=== PATIENT | male | born 1995 | race Caucasian/White ===

== ENCOUNTER 2021-12-22 10:02 | Outpatient (CLI) | payer OTHER, SELFPAY ==
[2021-12-22 12:22] LABS: Absolute Lymphocyte Count 1.94 X10^3/uL (0.83-4.51); Absolute Neutrophil Count 2.8 X10^3/uL (2.0-7.7); Basophil# 0.04 X10^3/uL; Basophil% 0.7 % (0-1); Eosinophil# 0.12 X10^3/uL; Eosinophils% 2.1 % (0-5); Hematocrit 48.8 % (40-54); Hemoglobin 16.8 g/dL (13.0-16.5); Lymphocyte # 1.94 X10^3/ul (0.83-4.51); Lymphocyte % 34.6 % (19-41); Mean Corp Hgb Conc 34.4 g/dL (32-36); Mean Corpuscular Volume 87.1 fL (80-94); Mean Platelet Vol. 10.4 fl (6.2-12.0); Monocyte# 0.73 X10^3/uL; NRBC Flagged by Analyzer 0 % (0-5); Neutrophil # 2.77 X10^3/uL (2.7-7.7); Neutrophil % 49.4 % (47-70); Platelet Count 294 K/mm3 (150-450); RBC Distribution Width SD 38.6 fl (35.1-43.9); White Blood Count 5.6 K/mm3 (4.4-11.0)
[2021-12-22 12:46] LABS: Vitamin D,25 Hydroxy 17.8 ng/mL
[2021-12-22 13:05] LABS: ALB/GLOB Ratio 0.9 RATIO (0.9-2.4); AST(SGOT) 44 U/L (15-37); Alanine Aminotransfer ALT/SGPT 145 U/L (16-61); Albumin, Serum 3.6 g/dL (3.2-5.0); Alkaline Phosphatase 91 U/L (45-117); Anion Gap 5 (5-15); BUN 16 mg/dL (7-18); BUN/Creat Ratio 18.6 RATIO (10-20); Calcium,Total 8.9 mg/dL (8.5-10.1); Chloride 107 mmol/L (98-107); Cholesterol 261 mg/dL (200); Creatinine, Serum 0.86 mg/dL (0.70-1.30); EST Glomerular Filtration Rate 114 mL/min (>60); Est Glom Filt Rate - Afr Amer 137 mL/min (>60); Free T3 3.2 pg/mL (2.18-3.98); Globulin 3.8 g/dL (2.2-4.2); Glucose 136 mg/dL (74-106); High Density Lipoprotein 45 mg/dL; Protein, Total 7.4 g/dL (6.4-8.2); Sodium Level 140 mmol/L (136-145); T4 Free Direct 0.98 ng/dL (0.76-1.46); Thyroid Stim Hormone (TSH) 2.11 uIU/mL (0.358-3.74); Triglycerides 294 mg/dL; Very Low Density Lipoprotein 59 mg/dL (5-40)
[2021-12-22 13:25] LABS: Hemoglobin A1c 6.1 % (3.8-5.6)
== END 2021-12-22 23:59 | disposition home or self-care (01) ==
LOC: BIMLAB 10:03
PROVIDERS: PCP Internal Medicine; Referring Provider Internal Medicine; Visit Provider Internal Medicine
DX: E11.9 Type 2 diabetes mellitus without complications (principal); E66.3 Overweight; R80.9 Proteinuria, unspecified; E55.9 Vitamin D deficiency, unspecified
CPT/HCPCS: 36415; 80053; 80061; 82306; 83036; 84439; 84443; 84481; 85025

== ENCOUNTER 2021-12-30 11:17 | Outpatient (CLI) | payer OTHER, SELFPAY ==
[2021-12-30 12:56] LABS: 24HR. UA Prot. Total Volume 1000 mL
[2021-12-30 12:59] LABS: Urine Protein (24 Hour) 345.9 mg/dL (<11.9)
[2021-12-30 13:05] LABS: Creat.Clear Total Volume 1000 mL; Creatinine Clearance 195 ml/min (100-200); Creatinine Serum Creat 0.9 mg/dL (0.8-1.3); EST Glomerular Filtration Rate 110 mL/min (>60); Est Glom Filt Rate - Afr Amer 133 mL/min (>60)
[2021-12-30 13:05] LABS: Creatinine, Serum 0.88 mg/dL (0.70-1.30); EST Glomerular Filtration Rate 110 mL/min (>60); Est Glom Filt Rate - Afr Amer 133 mL/min (>60)
== END 2021-12-30 23:59 | disposition home or self-care (01) ==
LOC: BIMLAB 11:18
PROVIDERS: PCP Internal Medicine; Referring Provider Internal Medicine; Visit Provider Internal Medicine
DX: E11.9 Type 2 diabetes mellitus without complications (principal)
CPT/HCPCS: 36415; 81050; 82565; 82575; 84156

== ENCOUNTER 2022-02-18 07:44 | Outpatient (CLI) | payer OTHER, SELFPAY ==
--- NOTE | 2022-02-18 07:48 | US_ITS ---
STUDY: ABDOMINAL ULTRASOUND - RIGHT UPPER QUADRANT REASON FOR VISIT: Male, 26 years old NAFLD TECHNIQUE: Ultrasound evaluation of the right upper quadrant was performed with real-time and static roper-scale imaging. TECHNICAL QUALITY: Adequate. COMPARISON: None. FINDINGS: Liver: The liver is enlarged and measures 19.8 cm. There is increased echogenicity consistent with fatty infiltration. The bile ducts are within normal limits. There is hepatic color flow. The direction of portal flow is hepatopetal. There is no demonstrated mass lesion. Gallbladder: Normal distended gallbladder. The gallbladder wall measures 2.6 mm. There is a negative sonographic Shipley''s sign. There is no pericholecystic fluid. There are no gallstones. Common Bile Duct (C.B.D.): The common bile duct measures 3.7 mm. Pancreas: Normal size of the head, body and tail of the pancreas. There is increased echogenicity of the pancreas. There is no demonstrated pancreatic mass or cyst. Right Kidney: Normal size of the right kidney. The right kidney measures 12.4 cm x 5.6 cm x 7.3 cm. Normal renal cortex. The right cortex measures 2.7 cm. There is no demonstrated renal mass or cyst. There is no right hydronephrosis. US/Liver IMPRESSION: Hepatomegaly and diffuse fatty infiltration of the liver. Electronically Signed: Peter Jordan MD at 15:26 EDT ,
== END 2022-02-18 23:59 | disposition home or self-care (01) ==
PROVIDERS: PCP Internal Medicine; Referring Provider Internal Medicine; Visit Provider Internal Medicine
DX: E11.9 Type 2 diabetes mellitus without complications (principal)
CPT/HCPCS: 76705

== ENCOUNTER 2023-12-01 16:10 | Emergency (ER) | payer SELFPAY ==
[2023-12-01 16:10] VITALS: BP 154/143; PULSE 108; RESP 18; TEMP 36.3; O2SAT 99; BMI 28.3
[2023-12-01 16:38] LABS: Bedside Glucose 348 mg/dL (74-106)
--- NOTE | 2023-12-01 16:44 | EX.ED.DYSGE1 ---
HPI History of Present Illness Chief Complaint: Hyperglycemia Narrative Narrative: 28-year-old male with history of diabetes type 2 presenting with high blood sugars. Patient states that he was diagnosed with type 2 diabetes a couple years ago by Dr. Anaya. He was told to stay away from sugar-free drinks with fake sugar in them, high carb foods. Apparently Dr. Anaya went over all of the diet that he should modify as well as increasing exercise. Also has a history of high blood pressure and is on lisinopril 10 mg p.o. daily. Over the last 2 years he has only sporadically been taking his metformin when he notices that his sugars a little high and he takes his lisinopril only if he sees his blood pressures at high he does not take them on a regular basis. He has not followed up with a primary care physician. Apparently Dr. Anaya left the area and because the patient does not have insurance he is a self-pay and does not want to spend a lot of money. Patient denies polyuria polydipsia. He does drink a lot of sugar-free drinks with fake sugar in them . Patient also still chews Bob which is similar to chewing tobacco and has nicotine in it. Patient states that he has an active job but does not physically do a lot of exercise other than working. This may be he states that he has metformin leftover because only sporadically took his and his dad who recently had a boatload of metformin leftover . [facility] Medical History Diabetes type 2, uncontrolled Home Medications lisinopril 10 mg tablet 10 mg PO DAILY #90 tabs 12/22/21 [Rx Last Taken Unknown] metformin 500 mg tablet 500 mg PO DAILY #90 tabs 02/21/22 [Rx Last Taken Unknown] lisinopril 10 mg tablet 10 mg PO DAILY #60 tabs 12/01/23 [Rx Last Taken Unknown] metformin 500 mg tablet 500 mg PO BID #120 tabs 12/01/23 [Rx Last Taken Unknown] Allergy/AdvReac Type Severity Reaction Status Date / Time No Known Allergies Allergy Verified 12/01/23 16:10 Family History Other Diabetes Social History household members: spouse current occupational status: employed current occupation: asphalt /paving Smoking Status: Never smoker Smokeless tobacco user: chewing tobacco alcohol intake: current alcohol intake frequency: holidays/special occasions only substance use type: does not use ROS ROS ED Constitutional Constitutional ED: Denies chills, fever(s) or sweats Eyes Eyes: Denies blurry vision or change in vision ENT ENT ED: Denies ear pain or sore throat Cardiovascular Cardiovascular: Denies chest pain, palpitations or racing heartbeat Respiratory/Chest Respiratory/Chest: Denies cough, dyspnea or sputum Gastrointestinal Gastrointestinal: Denies abdominal pain, constipation, diarrhea, nausea or vomiting Genitourinary Genitourinary ED: Denies dysuria, hematuria or urinary frequency Musculoskeletal Musculoskeletal: Denies arthralgias, myalgias or neck pain Integumentary Denies abscess, Abrasions or rash Neurologic Neurologic: Denies headache(s), paresthesias or weakness Psychiatric Psychiatric: Denies anxiety, depression, suicidal ideation or suicidal thoughts Endocrine Endocrinology: Denies polydipsia or polyuria EXAM Physical Exam Const Vital Signs: 12/01/23 16:10 12/01/23 16:10 Temperature 97.3 F L Temperature Source Temporal Pulse Rate 108 H Respiratory Rate 18 Respiratory Effort Normal Respiratory Pattern Normal Blood Pressure 154/143 H Blood Pressure Mean 146 Pulse Ox 99 Oxygen Delivery Method Room Air Positive well nourished General Appearance ED: NAD; Negative for pallor HEENT Reports moist mucous membranes Negative for trauma Eyes PERRL and EOMs intact bilaterally Neck no lymphadenopathy Chest Wall inspection of chest normal Resp normal respiratory effort Effort and Inspection: Negative for retractions Cardio regular rate Rate: tachycardic GI normal to inspection, nondistended, normoactive bowel sounds Neuro oriented x3 and CN's II-XII intact bilaterally Sensorium / Orientation: alert Psych mental status grossly normal Skin no rashes or lesions noted General Skin Exam: Negative for jaundice or pallor MDM MDM MDM Narrative Medical decision making narrative: Well-appearing 28-year-old male. Slightly tachycardic otherwise vital signs are stable he is afebrile. Patient does not have polyuria or polydipsia. He states his blood sugar was high today in the 400s but he also states that he ate a pepperoni roll for breakfast and a cup of soup with a BLT for lunch just prior to checking his blood sugar at around noon. Patient has been medically noncompliant with his metformin and his lisinopril over the last couple of years and is only sporadically taking it. He does not make follow-up because he states he does not have insurance and is self-pay. Patient's BGT today at the bedside is 348. I do not suspect he has DKA or hyperosmolar hyperglycemic state. Patient is given IV fluids. Will check a CBC to assess white blood cell count, hemoglobin, platelets. BMP to assess renal function, electrolytes, glucose, anion gap. Urinalysis to assess for UTI and glucose as well as ketones. Discussed with the patient at length that he needs to patient call the office. Be more compliant with his medications. I explained to him that his diabetic meds and his hypertensive meds will not work if he only takes them sporadically. I did request some resources from the hospital and was able to get him a blood consult for diabetic management which will be outpatient. Discussed with him at length that there is plenty of online resources we can educate himself about diabetes at home. We did talk about nicotine cessation today as he states he still uses nicotine in the form of Bob . His A1c came back at 12.1 which would put his estimated blood sugar around 300. Discussed all these findings with the patient and the plan is to have him follow-up at [facility] follow-up. He is given a 2-month supply of his medications. He is counseled to take these as prescribed. Return precautions are discussed. Impression: 1. Uncontrolled diabetes 2. Uncontrolled hypertension 3. Medical noncompliance Lab Data Attestation: I reviewed the patient's lab results. Labs: Laboratory Results - last 24 hr 12/01/23 12/01/23 16:19 16:57 WBC 6.1 RBC 5.50 Hgb 15.8 Hct 47.5 MCV 86.4 MCH 28.7 MCHC 33.3 RDW Std Deviation 37.0 RDW Coeff of Marty 11.8 Plt Count 334 MPV 10.1 Immature Gran % (Auto) 0.700 Neut % (Auto) 51.5 Lymph % (Auto) 36.9 [place] % (Auto) 8.5 Eos % (Auto) 1.1 Baso % (Auto) 1.3 H Absolute Neuts (auto) 3.2 Absolute Lymphs (auto) 2.26 Nucleated RBC % 0 Sodium 137 Potassium 4.0 Chloride 102 Carbon Dioxide 29.0 Anion Gap 6 BUN 15 Creatinine 0.88 Estim Creat Clear Calc 140.71 Est GFR (MDRD) Af Amer 133 Est GFR (MDRD) Non-Af 110 BUN/Creatinine Ratio 17.1 Glucose 321 H Hemoglobin A1c 12.1 H Calcium 9.5 Total Bilirubin 0.30 AST 33 ALT 77 H Alkaline Phosphatase 140 H Total Protein 7.2 Albumin 3.5 Globulin 3.7 Albumin/Globulin Ratio 0.9 Urine Color Yellow Urine Clarity Clear Urine pH 6.5 Ur Specific Tilly 1.015 Urine Protein 500 H Urine Glucose (UA) 1000 H Urine Ketones 15 H Urine Occult Blood 10 H Urine Nitrite Negative Urine Bilirubin Negative Urine Urobilinogen Normal Ur Leukocyte Esterase Negative Urine RBC 0 SEEN Urine WBC 0 SEEN Ur Squamous Epith Cells 0 SEEN Urine Bacteria 0 SEEN Urine Mucus 0 SEEN POC Glucose 348 H Discharge Plan Triage Chief Complaint: Hyperglycemia ED Provider: Percy Stanton Dx/Rx/DC Orders Clinical Impression: Hypertension, uncontrolled, Medical non-compliance, Diabetes type 2, uncontrolled Instructions: ED Diabetic Hyperglycemia, ED Hypertension, Established Prescriptions: New lisinopril 10 mg tablet 10 mg PO DAILY Qty: 60 0RF metformin 500 mg tablet 500 mg PO BID Qty: 120 0RF No Action lisinopril 10 mg tablet 10 mg PO DAILY Qty: 90 1RF metformin 500 mg tablet 500 mg PO DAILY Qty: 90 1RF Primary Care Provider: Care Physician,No [facility]5 [facility] Martha Whiteside MD [Med Staff - Associate Professor Of Sociology] - Disposition Disposition: Home, Self Care
--- OUTSIDE RECORDS SUMMARY | 2023-12-01 16:51 | XMS RPT_ITS | CCD ---
Author Name Unknown Address [address] [place] [address] Organization [facility] Care Team Providers Care Datastage Consultant Name Role Phone MARCELLUS PEREA DO Admitting Unavailable MATT TAN Referring Unavailable MATT TAN Consulting Unavailable MARCELLUS PEREA DO Attending Unavailable MARCELLUS PEREA DO Primary Care Unavailable PROVIDER, UNKNOWN Consulting Unavailable Results Test Name Value Interpretation Reference Range Facil ity Encounters Encounter Date Encounter Type Care Provider Facility Start: 01-15-2022 End: 01-15-2022 Emergency department patient visit MARCELLUS ANTUNEZ [facility] Payers Date Payer Category Payer Unknown [id number] Unknown [id number] Summary Purpose Family History No Family History Records FoundNo Family History Records Found Advance Directives No Advanced Directives Records FoundNo Advanced Directives Records Found Additional Source Comments (unrecognized sect ion and content) No Status Records FoundNo Status Records Found INFORMATION SOURCE (unrecogn ized section and content) DATE CREATED AUTHOR AUTHOR'S ORGANIZ ATION 01/19/2022 [facility] FOR RECORDS PERTAINING TO PATIENTS WHO ARE OR HAVE BEEN ENROLLED IN A CHEMICAL DEPENDENCY/SUBSTANCEABUSE PROGRAM, SOME INFORMATION MAY BE OMITTED. This clinical summary was aggregated from multiple sources. Caution should be exercised in using it in the provision of clinical care. This summary normalizes information from multiple sources, and as a consequence, information in this document may materially change the coding, format and clinical context of patient data. In addition, data may be omitted in some cases. CLINICAL DECISIONS SHOULD BE BASED ON THE PRIMARY CLINICAL RECORDS. [facility]. provides no warranty or guarantee of the accuracy or completeness of information in this document.
[2023-12-01] MEDS: 0.9% Normal Saline (1000mL) 1,000 ML 999 ML IV (16:53)
[2023-12-01 17:08] LABS: Bacteria 0 SEEN /hpf (None Seen); Mucous, Urine 0 SEEN /hpf (<or=2+); Red Blood Cells-Urine 0 SEEN /hpf (0-5); Squamous Epithelial Cells - UA 0 SEEN /hpf (0-5); White Blood Cells 0 SEEN /hpf (0-5)
[2023-12-01 17:12] LABS: Absolute Lymphocyte Count 2.26 X10^3/uL (0.83-4.51); Absolute Neutrophil Count 3.2 X10^3/uL (2.0-7.7); Basophil# 0.08 X10^3/uL; Basophil% 1.3 % (0-1); Color, Urine Yellow (Yellow); Eosinophil# 0.07 X10^3/uL; Eosinophils% 1.1 % (0-5); Glucose, Dipstick 1000 mg/dl (Normal); Hematocrit 47.5 % (40-54); Hemoglobin 15.8 g/dL (13.0-16.5); Ketone-Dipstick 15 mg/dl (Negative); Leukocyte Esterase-Dipstick Negative /ul (Negative); Lymphocyte # 2.26 X10^3/ul (0.83-4.51); Lymphocyte % 36.9 % (19-41); Mean Corp Hgb Conc 33.3 g/dL (32-36); Mean Corpuscular Hgb 28.7 pg (27.0-32.0); Mean Corpuscular Volume 86.4 fL (80-94); Mean Platelet Vol. 10.1 fl (6.2-12.0); Monocyte# 0.52 X10^3/uL; Monocyte% 8.5 % (0-10); NRBC Flagged by Analyzer 0 % (0-5); Neutrophil # 3.16 X10^3/uL (2.7-7.7); Neutrophil % 51.5 % (47-70); Nitrite-Dipstick Negative (Negative); Occult Blood-Urine 10 /ul (Negative); Platelet Count 334 K/mm3 (150-450); Protein-Dipstick 500 mg/dl (Negative); RBC Distribution Width CV 11.8 % (11.6-14.6); Specific Gravity, Urine 1.015 (1.002-1.030); Urine Bilirubin Dipstick Negative (Negative); Urine Clarity Clear (Clear); Urine Urobilinogen Normal (Normal); Urine pH 6.5 (5.0 - 8.0); White Blood Count 6.1 K/mm3 (4.4-11.0)
[2023-12-01 17:28] LABS: ALB/GLOB Ratio 0.9 RATIO (0.9-2.4); AST(SGOT) 33 U/L (15-37); Alanine Aminotransfer ALT/SGPT 77 U/L (16-61); Albumin, Serum 3.5 g/dL (3.2-5.0); Alkaline Phosphatase 140 U/L (45-117); Anion Gap 6 (5-15); BUN 15 mg/dL (7-18); BUN/Creat Ratio 17.1 RATIO (10-20); Calcium,Total 9.5 mg/dL (8.5-10.1); Chloride 102 mmol/L (98-107); Creatinine, Serum 0.88 mg/dL (0.70-1.30); EST Glomerular Filtration Rate 110 mL/min (>60); Est Glom Filt Rate - Afr Amer 133 mL/min (>60); Estimated Creatinine Clearance 140.71 ml/min; Globulin 3.7 g/dL (2.2-4.2); Glucose 321 mg/dL (74-106); Hemoglobin A1c 12.1 % (3.8-5.6); Protein, Total 7.2 g/dL (6.4-8.2); Sodium Level 137 mmol/L (136-145)
[2023-12-01 18:08] VITALS: BP 138/78; PULSE 64; RESP 14; TEMP 36.4; O2SAT 99
== END 2023-12-01 18:09 | disposition home or self-care (01) ==
PROVIDERS: Emergency Provider Student in an Organized Health Care Education/Training Program; Visit Provider Student in an Organized Health Care Education/Training Program
DX: E11.65 Type 2 diabetes mellitus with hyperglycemia (principal); Z79.84 Long term (current) use of oral hypoglycemic drugs; I10 Essential (primary) hypertension; Z91.199 Patient's noncompliance with other medical treatment and regimen due to unspecified reason; Z79.899 Other long term (current) drug therapy; F17.220 Nicotine dependence, chewing tobacco, uncomplicated
CPT/HCPCS: 80053; 81001; 82962; 83036; 85025; 96360; 99284; J7030; A4216

== ENCOUNTER 2024-01-01 13:17 | Outpatient (RCR) | payer SELFPAY | END 2024-01-11 23:59 | LOC: NS 13:17 | PROVIDERS: Referring Provider Student in an Organized Health Care Education/Training Program; Visit Provider Student in an Organized Health Care Education/Training Program | DX: Z71.3 Dietary counseling and surveillance (principal); E66.3 Overweight; E11.9 Type 2 diabetes mellitus without complications | CPT/HCPCS: 97802 ==